=== PATIENT | male | born 1940 | race African-American/Black ===

== ENCOUNTER 2023-02-12 02:05 | Day surgery (SDC) | payer MEDICARE, SELFPAY ==
[2023-02-03 13:21] VITALS: BMI 24.3
--- NOTE | 2023-02-11 16:37 | PM.HPGS ---
History of Present Illness History of Present Illness Consent: Risks, benefits, and alternatives have been discussed and questions answered. Patient agrees to proceed with procedure. Chief complaint: TOBY Narrative: Josiah Mckinney Jr. is a 82 year old male Who was referred because ?Hemoglobin was found to be 7.7 last month.? Also iron level was low at 11 with only 2% saturation.? Ferritin was 8.? Folic acid level and B12 levels were normal.? He does not see blood in his stools.? He states however that for the past 4 weeks or so his stools have been very dark, though not quite black.? He has not had significant problems with heartburn or indigestion, his appetite is good, he has not lost weight and he has no abdominal pain.? Occasionally he will have a loose stool and was incontinent on a couple of occasions. Review of Systems Review of Systems: All systems reviewed & are unremarkable except as noted in HPI and below PMFSH Past Medical History Medical History Adult idiopathic generalized osteoporosis Anxiety Hypertension Social History Social History Smoking status: Former smoker Alcohol intake: current Drinks per week: 7 Alcohol use details: social Substance use: never Substance use type: does not use Living arrangements: with family Spiritual care concerns: No Meds Home Medications and Allergies Home Medications Medication Instructions Recorded Confirmed Type cholecalciferol (vitamin D3) 25 25 mcg PO DAILY 01/20/23 02/03/23 History mcg (1,000 unit) capsule ferrous sulfate 325 mg (65 mg 325 mg PO DAILY 01/20/23 02/03/23 History iron) tablet tamsulosin 0.4 mg capsule 0.4 mg PO DAILY 01/20/23 02/03/23 History Allergies Allergy/AdvReac Type Severity Reaction Status Date / Time No Known Allergies Allergy Unknown Verified 02/12/23 12:00 Exam Const: General: alert Orientation/consciousness: patient oriented x3 Resp: Auscultation: clear to auscultation bilaterally Cardio: Rhythm: regular rhythm GI: GI Palp: Yes Soft to palpation and No Tenderness to palpation present (GI) Neuro: General: patient oriented x3 Assessment and Plan Assessment and plan (1) Iron deficiency anemia: Code(s): D50.9 - Iron deficiency anemia, unspecified Status: Acute Assessment and Plan: EGD with possible biopsy or dilatation or cautery.Colonoscopy with possible biopsy or polypectomy or cautery or injection of substances.
[2023-02-12 12:02] VITALS: BP 134/81; PULSE 104; RESP 18; TEMP 36.2; O2SAT 100
[2023-02-12] MEDS: LACTATED RINGERS 1,000 ML 150 ML IV CONT (12:09)
--- NOTE | 2023-02-12 12:41 | P.PNAN_ITS ---
Anes - Initial Pre Proc Eval Procedure: Operation Date: 02/12/23 13:15 Proposed Procedures p Esophagogastroduodenoscopy & Colonoscopy - Joel Field MD Date/Time: 02/12/23 12:41 Surgeon: Joel Field MD Pre Op Diagnosis: TOBY Patient Data Age: 82 Gender: M Height: 1.7 m Weight: 71.5 kg Last Vital Signs Temp 97.2 F L 02/12/23 12:02 Pulse 104 H 02/12/23 12:02 Resp 18 02/12/23 12:02 BP 134/81 02/12/23 12:02 Pulse Ox 100 02/12/23 12:02 O2 Del Method Room Air 02/12/23 12:02 Allergies Allergy/AdvReac Type Severity Reaction Status Date / Time No Known Allergies Allergy Unknown Verified 02/12/23 12:00 Home Medications Medication Instructions Recorded Confirmed Type cholecalciferol (vitamin D3) 25 25 mcg PO DAILY 01/20/23 02/03/23 History mcg (1,000 unit) capsule ferrous sulfate 325 mg (65 mg 325 mg PO DAILY 01/20/23 02/03/23 History iron) tablet tamsulosin 0.4 mg capsule 0.4 mg PO DAILY 01/20/23 02/03/23 History Patient hx anesthesia problems: none Family hx anesthesia problems: none Results Review: All pre-operative results and documents have been reviewed as part of the pre- operative evaluation. [facility] Past Medical History Medical History Adult idiopathic generalized osteoporosis Anxiety Hypertension Social History Social History Smoking status: Former smoker Alcohol intake: current Drinks per week: 7 Alcohol use details: social Substance use: never Substance use type: does not use Living arrangements: with family Spiritual care concerns: No Anes - Eval Final PreProcedure Day of Procedure 02/12/23 12:41 Patient weight: normal Heart: regular rate and rhythm Lungs: clear to auscultation Airway: Mallampati scale class II Neurological: alert and oriented Last oral intake: >/= 8 hours ASA classification: II Emergent: no Anesthetic plan: proceed Anesthesia type and monitoring: general GIVS and standard monitoring Results Review: All pre-operative results and documents have been reviewed as part of the pre- operative evaluation. Informed Consent: The patient's anesthetic plan and its attendant risks and benefits were discussed with the patient/family/POA. Questions were solicited and answers provided to the satisfaction of the patient/family/POA.
--- NOTE | 2023-02-12 13:28 | SUR.OPER ---
EGD: began at 1312. Colonoscopy: began at 1327.
[2023-02-12 13:53] VITALS: BP 120/73; PULSE 75; RESP 25; O2SAT 100
[2023-02-12 14:03] VITALS: BP 109/65; PULSE 75; RESP 24; O2SAT 98
[2023-02-12 14:13] VITALS: BP 126/78; PULSE 72; RESP 23; O2SAT 95
== END 2023-02-12 14:23 | disposition home or self-care (01) ==
PROVIDERS: PCP Internal Medicine; Visit Provider Internal Medicine Gastroenterology
PROC: 0DJ08ZZ Inspection of Upper Intestinal Tract, Via Natural or Artificial Opening Endoscopic (ICD-10-PCS; CPT 43235; principal; 2023-02-12 13:15)
DX: D50.9 Iron deficiency anemia, unspecified (principal); D12.0 Benign neoplasm of cecum; K57.30 Diverticulosis of large intestine without perforation or abscess without bleeding; K64.8 Other hemorrhoids; K25.9 Gastric ulcer, unspecified as acute or chronic, without hemorrhage or perforation; K22.70 Barrett's esophagus without dysplasia; K44.9 Diaphragmatic hernia without obstruction or gangrene; Z87.891 Personal history of nicotine dependence
CPT/HCPCS: 45381; 45385; 43239; 88305; 88313; 88342; J2704; J7120